=== PATIENT | male | born 1960 | race Caucasian/White ===

== ENCOUNTER 2017-04-20 17:28 | Emergency (ER) | payer OTHER ==
[~2017-04-20] VITALS: Ht 177.8 cm; Wt 106.1 kg
[2017-04-20] MEDS ORDERED: NEXIUM40 MG PO (18:21)
[2017-04-20] MEDS ORDERED: BYSTOLIC 5 MG5 M1 PO (18:21)
[2017-04-20] MEDS ORDERED: ZETIA10 MG PO (18:21)
[2017-04-20] MEDS ORDERED: CRESTOR10 MG PO (18:21)
[2017-04-20] MEDS ORDERED: TRILIPIX135 MG PO (18:22)
[2017-04-20 18:46] LABS: ABSOLUTE NEUTROPHILS 8.5 thou/uL (1.4-8.2); BASOPHILS 0.3 % (0.0-2.0); HEMOGLOBIN 14.9 gm/dL (14.0-18.0); LYMPHOCYTES 20.8 % (24.0-44.0); MCH 31.4 pg (26.0-34.0); MCHC 35.5 g/dL (28.0-37.0); MCV 88.6 fL (80.0-100.0); MONOCYTES 6.7 % (1.0-8.0); PLATELET COUNT 168 thou/uL (150-400); POLYS 69.2 % (36.0-66.0); RBC 4.74 mil/uL (4.50-6.00); RDW 13.3 % (10.5-14.5); WBC 12.4 thou/uL (4.0-11.0)
[2017-04-20 18:47] LABS: URINE BILIRUBIN NEGATIVE (Negative); URINE BLOOD NEGATIVE (Negative); URINE COLOR YELLOW; URINE GLUCOSE-RANDOM* NEGATIVE (Negative); URINE KETONES NEGATIVE (Negative); URINE LEUKOCYTES-REFLEX NEGATIVE (Negative); URINE PROTEIN (DIPSTICK) TRACE (Negative); URINE UROBILINOGEN 0.2 E.U./dl (0.2-1.0)
[2017-04-20 18:47] LABS: MANUAL DIFF NO
[2017-04-20 18:56] LABS: CALCIUM 9.6 mg/dL (8.5-10.1); CREATININE 1.1 mg/dL (0.7-1.3); POTASSIUM 3.7 mmol/L (3.5-5.1)
[2017-04-20 19:01] LABS: ALBUMIN 4.6 g/dL (3.4-5.0); TOTAL BILIRUBIN 0.4 mg/dL (<0.1-1.0); TOTAL PROTEIN 8.2 g/dL (6.4-8.2)
[2017-04-20] MEDS ORDERED: SENNA8.6 MG PO (19:39)
[2017-04-20] MEDS ORDERED: CITRATE OF MAG296 ML PO (19:39)
[2017-04-20 20:07] VITALS: BP 177/101
== END 2017-04-20 20:09 | disposition home or self-care (01) ==
LOC: ER 17:28
PROVIDERS: Physician Assistant
DX: K59.00 Constipation, unspecified (principal); I10 Essential (primary) hypertension; I25.2 Old myocardial infarction; F10.99 Alcohol use, unspecified with unspecified alcohol-induced disorder